=== PATIENT | male | born 1930 | race Caucasian/White ===

== ENCOUNTER → 2016-04-08 | Outpatient (CLI) | payer OTHER, MEDICARE ==
[~2016-04-08] MED LIST: ACET-1311 PO; ACT/30 PO; AMX500 PO; APIX1TAB3 PO; ASPI1TAB66 PO; ATOR80TA PO; CHOL100010 PO; DOCU100C31 PO; FAMO20TA11 PO; FURO-85 PO; GLIM1TAB PO; ISOS60TA2 PO; LEDI1TAB PO; METF1000 PO; METO25TA56 PO; NITR0.4S UT; NVLG; POTA-65 PO
[2016-04-08 13:18] LABS: ESTIMATED AVERAGE GLUCOSE 146 mg/dl; HA1C FLAG Normal (Normal)
[2016-04-08 13:55] LABS: RATIO 8.9 mcg/mg (0-30.0)
== END | disposition home or self-care (01) ==
LOC: C.LAB1850 11:35
PROVIDERS: ATTEND Nurse Practitioner Family
DX: E11.65 Type 2 diabetes mellitus with hyperglycemia (principal)

== ENCOUNTER → 2016-04-10 | Outpatient (CLI) | payer OTHER, MEDICARE ==
--- NOTE | 2016-04-10 12:10 | DIAGNOSTIC IMAGING REPORT ---
CT SCAN OF THE CHEST WITHOUT IV CONTRAST CLINICAL HISTORY: Pleural effusion. COMPARISON STUDY: Chest CT dated 01/09/2016 and 11/15/2015. TECHNIQUE: CT scan of the thorax was performed from the thoracic inlet to the upper abdomen. Images are reviewed in the axial, sagittal, and coronal planes. IV contrast was not administered for this examination as per the referring clinician. CT DOSE: 363.53 mGy.cm FINDINGS: Thyroid: Imaged portions of the thyroid gland are normal in size and attenuation. Thoracic aorta: There is atherosclerotic calcification of the thoracic aorta, which is normal in caliber and demonstrates standard 3-vessel arch anatomy. Heart: Midline sternotomy wires are noted. The heart is enlarged and without pericardial effusion. The coronary arteries and aortic valve leaflets are densely calcified. Lungs and pleural spaces: There is unchanged appearance of a small and loculated appearing pleural collection at the right lung base with associated pleural thickening. There is associated consolidative change at the right lung base with a curvilinear configuration. Additional foci of scarring are seen in the right upper lung. Foci of tree-in-bud nodularity are again seen in the left upper lobe in the right middle lobe. Scattered calcified granulomas are identified. A 4 mm low suspicion focus of pleural thickening is again seen in the left lower lobe lung major fissure on image #[id number]. The trace left pleural effusion seen previously has resolved. Mediastinum: There is no mediastinal lymphadenopathy. Margarita: Not well assessed without IV contrast. Axillae: There is no axillary lymphadenopathy. Upper abdomen: Cholecystectomy clips are noted. There is near complete fatty atrophy of the pancreas. Cortical atrophy is noted in the partially imaged kidneys. There are small nonobstructing right renal calculi. A hiatal hernia is observed. Calcified mesenteric lymph nodes are seen in the left upper quadrant.. Skeletal structures: The skeletal structures are osteopenic. No lytic or blastic bony lesions are seen. There is a mild compression deformity of L1. IMPRESSION: 1. Unchanged appearance of a small chronic and loculated appearing pleural collection at the right lung base dating back to the 11/15/2015 examination. 2. There is unchanged curvilinear airspace opacification identified at the right lung base. The appearance is most typical for round atelectasis. 3. Tree-in-bud airspace opacities in the right middle and left upper lobes are unchanged from previous. 4. Cardiomegaly. 5. Right-sided nephrolithiasis. 6. Additional changes as above. Electronically signed by: Wilfred Corley M.D. 04/10/2016 12:08 PM Dictated Date/Time: 04/10/2016 12:02 PM
== END | disposition home or self-care (01) ==
LOC: C.CTS 11:26
PROVIDERS: ATTEND Surgery
DX: J90 Pleural effusion, not elsewhere classified (principal); I51.7 Cardiomegaly; N20.0 Calculus of kidney

== ENCOUNTER → 2016-05-29 | Outpatient (CLI) | payer OTHER, MEDICARE ==
[2016-05-29 11:00] LABS: ALT/SGPT 26 U/L (12-78); BLOOD UREA NITROGEN 19 mg/dl (7-18); CARBON DIOXIDE 28 mmol/L (21-32); CHLORIDE 101 mmol/L (98-107); CHOLESTEROL 117 mg/dl (0-200); GLUCOSE 146 mg/dl (70-99); POTASSIUM 4.5 mmol/L (3.5-5.1); SODIUM 137 mmol/L (136-145)
[2016-05-29 11:11] LABS: ALB/GLOB RATIO 0.7 (0.9-2); ALKALINE PHOSPHATASE 88 U/L (45-117); AST/SGOT 26 U/L (15-37); CHOLESTEROL/HDL RATIO 2.6; HDL CHOLESTEROL 45 mg/dl; LDL CHOLESTEROL CALCULATED 60 mg/dl; TRIGLYCERIDES 61 mg/dl (0-150); VERY LOW DENSITY LIPOPROT CALC 12 mg/dl
[2016-05-29 11:17] LABS: ESTIMATED AVERAGE GLUCOSE 151 mg/dl; HA1C FLAG Normal (Normal)
[2016-05-29 13:46] LABS: RATIO 31.6 mcg/mg (0-30.0)
== END | disposition home or self-care (01) ==
LOC: C.LAB1850 09:23
PROVIDERS: ATTEND Nurse Practitioner Family
DX: E11.49 Type 2 diabetes mellitus with other diabetic neurological complication (principal); E78.5 Hyperlipidemia, unspecified

== ENCOUNTER → 2016-05-31 | Outpatient (CLI) | payer OTHER, MEDICARE ==
[2016-05-31 12:11] LABS: BASO % 1.2 %; BASO ABS # 0.09 K/uL (0-0.2); COMPLETE YES; EOS % 2.2 %; HEMATOCRIT 44.8 % (42-52); IG% 0.4 %; LYMPH % 14.2 %; LYMPH ABS # 1.09 K/uL (1.2-3.4); MEAN CELL VOLUME 84.7 fL (80-100); MEAN CORPUSCULAR HEMOGLOBIN 27.6 pg (25-34); MEAN CORPUSCULAR HGB CONC 32.6 g/dl (32-36); MEAN PLATELET VOLUME 9.8 fL (7.4-10.4); PLATELET COUNT 212 K/uL (130-400); RED BLOOD COUNT 5.29 M/uL (4.7-6.1); WHITE BLOOD COUNT 7.67 K/uL (4.8-10.8)
[2016-05-31 12:42] LABS: INR 1.1 (0.9-1.1); PROTHROMBIN TIME (PATIENT) 11.4 SECONDS (9.0-12.0)
[2016-06-04 23:33] LABS: ANTI-CENTROMERE AB <1.0 NEG AI (<1.0 NEG); ANTI-SS-A <1.0 NEG AI (<1.0 NEG); ANTI-SS-B <1.0 NEG AI (<1.0 NEG); DNA ds CRITHIDIA NEGATIVE (NEGATIVE); HEPATITIS C VIRAL RNA BY PCR 5370000 IU/ML (<15); HEPATITIS C VIRAL RNA(LOG) PCR 6.73 LOG IU/ML (<1.18); LIVER FIBR APOLIPOPROTEIN A-1 125 mg/dL (94-176); LIVER FIBROS ALPHA-2-MACROGLOB 384 mg/dL (106-279); LIVER FIBROSIS GGT 47 U/L (3-70); MICROSOMAL AB <1 IU/ML (<9); NECROINFLAMMATION ACT GRADE A0; NECROINFLAMMATION ACT SCORE 0.15; Sm Antibody <1.0 NEG AI (<1.0 NEG); URCREATININE 46.6 MG/DL (>/= 20)
--- NOTE | 2016-06-06 06:13 | CODING QUERY MEDICAL NECESSITY ---
SUPPORTING DIAGNOSIS NEEDED A supporting diagnosis is required for the test/procedure performed on this patient in order for us to be reimbursed by the patient's insurance. Please provide a supporting diagnosis for the following test/procedure listed below next to the test name along with your signature. *If there is no additional diagnosis for this patient that would support the following test/procedure please document that below next to the test/procedure. Test(s)/Procedure(s) that require a supporting diagnosis: * URINE DRUG SCREEN DIAGNOSIS: * DOS: 05/31/16 Provider Signature: Date: Thank you Joanne Jones Health Information Management Once completed, please kindly fax back to [phone] For questions please call [phone]
== END | disposition home or self-care (01) ==
LOC: C.LAB1850 10:44
PROVIDERS: ATTEND Internal Medicine Infectious Disease
DX: B18.2 Chronic viral hepatitis C (principal)

== ENCOUNTER → 2016-06-26 | Outpatient (CLI) | payer OTHER, MEDICARE ==
--- NOTE | 2016-06-26 14:29 | DIAGNOSTIC IMAGING REPORT ---
CT SCAN OF THE CHEST WITHOUT IV CONTRAST CLINICAL HISTORY: Dyspnea on exertion. Pleural effusion. COMPARISON STUDY: Chest CT dated 04/10/2016 and 11/15/2015. TECHNIQUE: CT scan of the thorax was performed from the thoracic inlet to the upper abdomen. Images are reviewed in the axial, sagittal, and coronal planes. IV contrast was not administered for this examination as per the referring clinician. CT DOSE: 475.45 mGycm FINDINGS: Thyroid: Imaged portions of the thyroid gland are normal in size and attenuation. Thoracic aorta: There is atherosclerotic calcification of the thoracic aorta, which is normal in caliber and demonstrates standard 3-vessel arch anatomy. Heart: Midline sternotomy wires are noted. The heart is enlarged and without pericardial effusion. The coronary arteries and aortic valve leaflets are densely calcified. Lungs and pleural spaces: There is unchanged appearance of a small and loculated appearing pleural collection at the right lung base with associated pleural thickening. There is associated consolidative change at the right lung base with a curvilinear configuration suggesting round atelectasis. Additional foci of scarring are seen in the right midlung. Numerous foci of tree-in-bud nodularity are again seen in the left upper lobe and in the right middle lobe. Scattered calcified granulomas are identified. A 4 mm low suspicion focus of pleural thickening is again seen in the left lower lobe along the major fissure on image #[id number]. Mediastinum: There are scattered subcentimeter mediastinal lymph nodes. These are not pathologically enlarged by size criteria. Margarita: Not well assessed without IV contrast. Axillae: There is no axillary lymphadenopathy. Upper abdomen: Cholecystectomy clips are noted. There is near complete fatty atrophy of the pancreas. Cortical atrophy is noted in the partially imaged kidneys. There are small nonobstructing right renal calculi. A hiatal hernia is observed. Calcified mesenteric lymph nodes are again seen in the left upper quadrant.. Skeletal structures: The skeletal structures are osteopenic. No lytic or blastic bony lesions are seen. There is a mild chronic compression deformity of L1. IMPRESSION: 1. No significant change from 04/10/2016. 2. Again seen is a small chronic and loculated appearing pleural collection at the right lung base. This has not significantly changed dating back to the 11/15/2015 examination. 3. Curvilinear airspace opacification is identified at the right lung base. The appearance is most typical for round atelectasis. 4. Tree-in-bud airspace opacities in the right middle and left upper lobes are unchanged from prior studies and suggest a chronic infectious/inflammatory pneumonitis. 5. Cardiomegaly. 6. Right-sided nephrolithiasis. 7. Additional findings as above. Electronically signed by: Wilfred Corley M.D. 06/26/2016 2:28 PM Dictated Date/Time: 06/26/2016 2:22 PM
== END | disposition home or self-care (01) ==
LOC: C.CTS 14:05
PROVIDERS: ATTEND Surgery
DX: J90 Pleural effusion, not elsewhere classified (principal); R06.02 Shortness of breath; R91.8 Other nonspecific abnormal finding of lung field; I51.7 Cardiomegaly; M85.80 Other specified disorders of bone density and structure, unspecified site; N20.0 Calculus of kidney; K44.9 Diaphragmatic hernia without obstruction or gangrene

== ENCOUNTER → 2016-07-08 | Outpatient (CLI) | payer OTHER, MEDICARE ==
[2016-07-08 14:29] LABS: BLOOD UREA NITROGEN 31 mg/dl (7-18); BUN/CREATININE RATIO 25.5 (10-20); CALCIUM 8.9 mg/dl (8.5-10.1); CARBON DIOXIDE 28 mmol/L (21-32); CHLORIDE 101 mmol/L (98-107); GLUCOSE 176 mg/dl (70-99); POTASSIUM 4.4 mmol/L (3.5-5.1); SODIUM 135 mmol/L (136-145)
== END | disposition home or self-care (01) ==
LOC: C.LAB1850 12:31
PROVIDERS: ATTEND Internal Medicine Cardiovascular Disease
DX: I10 Essential (primary) hypertension (principal); R60.9 Edema, unspecified; R06.02 Shortness of breath

== ENCOUNTER → 2016-08-07 | Outpatient (CLI) | payer OTHER, MEDICARE ==
[2016-08-07 11:51] LABS: MEAN CELL VOLUME 85.1 fL (80-100); MEAN CORPUSCULAR HEMOGLOBIN 27.6 pg (25-34); MEAN CORPUSCULAR HGB CONC 32.4 g/dl (32-36); MEAN PLATELET VOLUME 9.7 fL (7.4-10.4); PLATELET COUNT 212 K/uL (130-400); RED BLOOD COUNT 4.82 M/uL (4.7-6.1)
--- NOTE | 2016-08-07 11:54 | DIAGNOSTIC IMAGING REPORT ---
ULTRASOUND OF THE CAROTID ARTERIES CLINICAL HISTORY: Peripheral vascular disease COMPARISON STUDY: None. TECHNIQUE: Real-time, grayscale, and color Doppler sonography of the carotid arteries was performed. Imaging reviewed in the transverse and longitudinal planes. NASCET criteria was utilized for stenosis calcification. FINDINGS: There is minimal atherosclerotic plaque present . The peak systolic velocity within the right internal carotid artery is 55 cm/sec. The systolic velocity ratio of right internal to common carotid artery is 0.7. The peak systolic velocity within the left internal carotid artery is 46 cm/sec. The systolic velocity ratio left internal to common carotid artery is 0.7. Antegrade flow is seen in the vertebral arteries. The external carotid arteries are patent. Blood pressure in the right arm measured 85 mm/Hg. Blood pressure in the left arm measured 90 mm/Hg. IMPRESSION: No evidence of hemodynamically significant carotid stenosis. Electronically signed by: John Fraser M.D. 08/07/2016 11:52 AM Dictated Date/Time: 08/07/2016 11:51 AM
[2016-08-07 12:01] LABS: INR 1.1 (0.9-1.1)
[2016-08-07 12:40] LABS: BLOOD UREA NITROGEN 30 mg/dl (7-18); BUN/CREATININE RATIO 25.2 (10-20); CARBON DIOXIDE 29 mmol/L (21-32); CHLORIDE 101 mmol/L (98-107); GLUCOSE 84 mg/dl (70-99); POTASSIUM 4.3 mmol/L (3.5-5.1); SODIUM 136 mmol/L (136-145)
[2016-08-07 14:31] LABS: RATIO 8.4 mcg/mg (0-30.0)
== END | disposition home or self-care (01) ==
LOC: C.ULTR 10:37
PROVIDERS: ATTEND Family Medicine
DX: Z01.818 Encounter for other preprocedural examination (principal); I73.9 Peripheral vascular disease, unspecified; E11.29 Type 2 diabetes mellitus with other diabetic kidney complication; I65.23 Occlusion and stenosis of bilateral carotid arteries

== ENCOUNTER → 2016-08-09 | Day surgery (SDC) | payer OTHER, MEDICARE ==
[~2016-08-09] VITALS: Ht 170.2 cm; Wt 76.0 kg
[~2016-08-09] MED LIST changes: +ACETAMINOPHEN 325 MG TAB PO PRN; +AMOXICILLIN 500 MG CAP PO SCH; +ATROPINE SULFATE 0.1 MG/ML 5ML SYR IV PRN; +CEFTRIAXONE SOD INJ 1 GM in DEXTROSE 5% ADD-VANTAGE 50ML 50 ML IV ONE; +FENTANYL CITRATE INJ 50 MCG/1 ML 2 ML VIAL ONE; +LIDOCAINE HCL 1% 20 ML VIAL ONE; +MIDAZOLAM HCL 1 MG/ML 2ML VIAL ONE; +SODIUM CHLORIDE 0.9% 1000ML 1,000 ML IV SCH; +SODIUM CHLORIDE 0.9% 1000ML 250 ML IV PRN
[2016-08-09 06:59] VITALS: BP 110/58; PULSE 83; TEMP 36.5; O2SAT 96; Ht 170.2 cm; Wt 76.0 kg
--- NOTE | 2016-08-09 08:17 | Procedure Note ---
Pre-Mod Sedation Assessment General Date of Moderate Sedation: August 09, 2016. Vital Signs: Vital Signs Past 12 Hours Date Time Temp Pulse Resp B/P Pulse Ox O2 Delivery O2 Flow Rate FiO2 08/09/16 06:59 36.5 83 18 110/58 96 Room Air Review Cardiovascular: + systolic murmur, + pertinent finding (pretibial edema) Abdomen: non tender, soft Lungs: lungs clear Pre-Sedation Airway Assessment Oral Cavity: Dentures, WNL Able to Visualize Vocal Cords: No Short Thick Neck: No Hx of Sleep Apnea: No Smoking Status: Former Smoker ASA Classification: Class III Procedure Planning Contraindications-for Mod Sed: None Yes Notes The planned sedation has been discussed with the patient and consent obtained. I have identified the patient, determined the appropriateness of sedation and have assessed the patient immediately prior to the procedure. All medicine(s) and interventions are by my order.
--- NOTE | 2016-08-09 08:21 | History & Physical Bridge Note ---
H&P Re-Evaluation Bridge Note: I have examined the patient, reviewed the History & Physical and in the interval since the performance of the History & Physical I have noted the following changes of clinical significance: Procedure ,risks, benefits, alternatives of cardiac catheterization discussed with patient. No changes noted
[2016-08-09 09:29] LABS: ISTAT ARTERIAL BLOOD GAS HCO3 25 meq/L (19-24); ISTAT ARTERIAL BLOOD GAS HCO3 26 meq/L (19-24); ISTAT ARTERIAL BLOOD GAS PCO2 43 mmHg (35-46); ISTAT ARTERIAL BLOOD GAS PCO2 45 mmHg (35-46); ISTAT ARTERIAL BLOOD GAS PO2 < 32 mmHg (80-95); ISTAT ARTERIAL BLOOD GAS pH 7.36 (7.35-7.45); ISTAT ARTERIAL BLOOD GAS pH 7.37 (7.35-7.45); ISTAT CARBON DIOXIDE 26 mEq/l (24-31); ISTAT CARBON DIOXIDE 27 mEq/l (24-31)
[2016-08-09 09:29] LABS: ISTAT ARTERIAL BLOOD GAS HCO3 24 meq/L (19-24); ISTAT ARTERIAL BLOOD GAS PCO2 38 mmHg (35-46); ISTAT ARTERIAL BLOOD GAS PO2 65 mmHg (80-95); ISTAT ARTERIAL BLOOD GAS pH 7.41 (7.35-7.45); ISTAT CARBON DIOXIDE 25 mEq/l (24-31)
[2016-08-09 09:29] LABS: ISTAT ARTERIAL BLOOD GAS HCO3 25 meq/L (19-24); ISTAT ARTERIAL BLOOD GAS PCO2 41 mmHg (35-46); ISTAT ARTERIAL BLOOD GAS PO2 < 32 mmHg (80-95); ISTAT ARTERIAL BLOOD GAS pH 7.38 (7.35-7.45); ISTAT CARBON DIOXIDE 26 mEq/l (24-31)
--- NOTE | 2016-08-09 12:50 | Procedure Note ---
Post-Mod Sedation Assessment General Date of Moderate Sedation August 09, 2016. Vital Signs: Vital Signs Past 12 Hours Date Time Temp Pulse Resp B/P Pulse Ox O2 Delivery O2 Flow Rate FiO2 08/09/16 12:30 74 18 110/60 96 Room Air 08/09/16 12:00 70 18 100/62 95 Room Air 08/09/16 11:45 71 18 89/55 95 Room Air 08/09/16 11:30 70 18 95/52 95 Room Air 08/09/16 11:15 70 18 89/54 95 Room Air 08/09/16 11:00 70 18 94/57 95 Room Air 08/09/16 10:45 70 20 107/59 96 Room Air 08/09/16 10:40 68 20 104/65 96 Room Air 08/09/16 10:35 70 20 93/60 95 Room Air 08/09/16 10:30 71 24 101/58 96 Room Air 08/09/16 10:25 70 20 102/57 95 Room Air 08/09/16 10:20 70 20 112/61 96 Room Air 08/09/16 10:15 70 20 101/62 98 Room Air 08/09/16 10:10 69 22 110/69 98 Room Air 08/09/16 10:05 68 23 109/73 100 Mask 3 08/09/16 10:00 68 22 112/74 98 Mask 3 08/09/16 06:59 36.5 83 18 110/58 96 Room Air Review - Discharge Criteria Vital Signs Stable: Yes Alert/Oriented/Conversant: Yes Returned to Baseline Mental St: Yes Nausea Absent/Minimal: Yes Pain/Discomfort/Absent/Minimal: Yes Normal/Baseline Respirations: Yes Active Bleeding?: No Pt Received D/C Instructions: Yes Prescriptions Given: Transmitted Specific Proced. D/C Criteria Distal Pulses Present (Cardiac: Yes Groin site assessed-Card Cath: Yes Voided Prior To Discharge: Yes Discharged Patients Adult Escort/Transportation: Yes
--- NOTE | 2016-08-09 13:21 | Discharge Instructions ---
Discharge Instructions Procedure Procedure Date: August 09, 2016. Reason for Visit: CAD, severe aortic stenosis. Cardiac cath pre TAVR Discharge Discharge Date: August 09, 2016. Discharge Diagnosis: Severe aortic stenosis. Coronary artery disease. Elevated intracardiac pressures. Last Recorded Wt (Kilograms): 76 Anesthesia Post Anesthesia Instructions: If you have had General Anesthesia or IV Sedation: * Do not drive today. * Resume driving when surgeon permits. * Do not make important decisions or sign legal documents today. * Call surgeon for: 1. Temperature elevations greater than 101 degrees F. 2. Uncontrollable pain. 3. Excessive bleeding. 4. Persistent nausea and vomiting. 5. Medication intolerance (nausea, vomiting or rash). * For nausea and vomiting use only clear liquids such as: tea, soda, bouillon until nausea subsides, then gradually increase diet as tolerated. * If you have any concerns or questions, call your surgeon's office. If physician is unavailable and it is an emergency, call 911 or go to the nearest emergency room. Instructions Activity Recommendations: lifting limitation (no lifting over 10 pounds for 48hr.), driving or machine use limit (Not till 08/10/16.), shower/bathe limit ( Not till 08/10/2016) Recommended Home Diet: low sodium, low cholesterol Allergies: Coded Allergies: Lisinopril (Unverified Adverse Reaction, Mild, unsteady gait, 10/03/12) Follow Up Additional Instructions: Call Dr. Rucker's office at [phone] for any questions or problems. Follow-up with: Dr. Rucker as scheduled. Dr. Chatman as scheduled. [facility] Recommendations: Call your doctor if: * Temperature above 101 degrees * Pain not relieved by pain medicine ordered * There is increased drainage or redness from any incision * You have any unanswered questions or concerns. Your Doctors Instructions noted above were prepared by provider Blas Rucker. Patient Signature Section: Patient Instructions Signature Page Marty Marquez Patient (or Guardian) Signature/Date: I have read and understand the instructions given to me by my caregivers. Caregiver/RN/Doctor Signature/Date: The above-named patient and/or guardian has received patient instructions on this date. + Original Patient Signature Page (only) stays with chart. Please make copy for patient.
--- NOTE | 2016-08-09 13:38 | Cardiac Catheterization ---
Procedure Note Procedure Date August 09, 2016. Pre-Procedure Diagnosis Angina, CAD, Valvular Disease, Cardiomyopathy AUC Score 7 Post-Procedure Diagnosis Severe CAD, Elevated Intracardiac Pressures Procedure(s) Performed Coronary Angiography, Right Heart Cath, Aortography, Femoral Artery Angiography Last Sorter Dr. Rucker Rn Licensed Practical(s) KIMBERLY Groves Estimated Blood Loss 40 ml Medication(s) Fentanyl, Heparin, Versed, Lidocaine 1% Summary of Findings Clinical indications: The patient has a longstanding history of coronary artery disease. He has undergone since 3 separate coronary artery bypass graft procedures in the past ( 1979,1987, 1999) . His most recent bypass was left internal mammary artery graft to LAD performed in December 1999. Failed catheter based intervention January 2000 [facility]. Medical therapy thereafter was recommended. External counterpulsation therapy 2000 in 2001. Longstanding history of aortic stenosis. Aortic valve area in 1999 10 was 1.1 cm. He also has a cardiomyopathy with prior LV ejection fraction 30%. He has previously declined referral for placement of an ICD. The patient has declined aortic valve replacement surgery or TAVR until recently. Recently he has developed worsening symptoms of heart failure manifested by increasing dyspnea on exertion. Now agreeable to undergoing TAVR. He has been evaluated at the [facility] for TAVR. This cardiac catheterization was indicated as workup prior to undergoing TAVR. Echocardiogram April 08, 2016 with moderate LV systolic dysfunction, moderate concentric LVH, severe calcific aortic stenosis, calculated aortic valve area 0.6 sq cm. Global hypokinesis of left ventricle most prominent in the anteroseptal and inferior segments. LV ejection fraction 35-40%. [id number] mitral regurgitation, mild tricuspid regurgitation, trace aortic regurgitation, trace pulmonic regurgitation. Moderate pulmonary hypertension. Elevated central venous pressure. Catheterization protocol: 4 Montserratian sheath right femoral artery. 7 Montserratian sheath right femoral vein. It was first attempted to insert a 5 Montserratian sheath in the right femoral artery. There was extensive scar tissue over the right femoral artery in the subcutaneous tissues. The 5 Montserratian sheath would not advance over the guidewire. The 4 Montserratian sheath was then inserted with difficulty. The 7 Montserratian sheath was inserted in the right femoral vein. Right heart catheterization was then performed. Coronary artery and bypass graft angiography were then performed. Aortography was then performed. The sheaths were then removed and hemostasis obtained with the application of manual pressure. Catheters: 7 Montserratian [place]-Julianne thermodilution catheter for right heart catheterization. 4 Montserratian JL4, JR4, internal mammary, and pigtail catheters for coronary angiography, bypass graft angiography, and aortography. Findings: The pressures in mm Hg were: RA 12/13/11; pulmonary artery 71/30/47 ; RV 74/14; pulmonary wedge 27/32/24; rest aorta 104/60/77; final aorta 104/59/ 77. Cardiac output determined by thermodilution method was 3.4 liters/ minute. Cardiac index 1.8 liters/minute per meter squared. The aortic saturation was 93%. Pulmonary artery 46%. the pulmonary vascular resistance determined by the thermodilution cardiac output was 6.7 Elliott units. The systemic vascular resistance was 19.2 Elliott units. fluoroscopy revealed coronary and aortic valvular calcifications. It revealed presence of coronary stents, surgical clips, and sternal wire sutures. There were no saphenous vein graft markers present. The coronary circulation was right dominant. The left main coronary artery was a large caliber vessel giving rise to large caliber left anterior descending and small caliber left circumflex coronary arteries. The distal left main had a 10% stenosis. Proximal LAD had a 30% stenosis before the 1st septal perforating branch and the 1st diagonal branch. The 1st diagonal had a 90% ostial stenosis. The 1st diagonal was a small caliber vessel. The septal perforating artery was a long small caliber prominent vessel. Left to right collateral flow was present from this septal to very small caliber right posterior descending artery and posterolateral arteries. The 2nd diagonal had a 50% ostial stenosis. The LAD was totally occluded after the origin of the 2nd diagonal. The left circumflex was diffusely disease. Very proximal left circumflex gave rise to two very small caliber diagonal type branches. The proximal circumflex was then totally occluded. Bridging movi-dv-orln collaterals were then present to the mid and distal circumflex. This segment of the left circumflex was visualized as a small caliber vessel. The mid circumflex gave rise to marginal which had a total ostial occlusion. The distal circumflex gave rise to a very small caliber marginal branch. Left to right collateral flow was present from the left circumflex to the right posterolateral artery. with faint pfxk-lf-gzkh collateral flow was present from the LAD diagonal to a left circumflex marginal. The right coronary artery was a small caliber vessel with a total proximal occlusion. Bridging right to right collateral flow from the proximal to mid RCA. The mid RCA gave rise to 2 very small caliber right ventricular branches. The RCA was then totally occluded in its distal segment. The left internal mammary artery was a very large caliber vessel. It was widely patent. It gave rise to a patent end-to-side anastomosis to the mid LAD. Distal to the graft insertion the mid LAD had minor luminal irregularities. The distal LAD then had a 30% stenosis. Proximal to the graft anastomosis the mid LAD had a 50% stenosis. There was retrograde flow to a long small caliber diagonal artery. Zwmy-lf-axbx collateral flow was present from the distal LAD diagonal to the left circumflex marginal. Pjgk-ik-owrma collateral flow was present from the distal LAD to the right posterior descending artery as well as a right ventricular branch. No saphenous vein grafts could be found with the diagnostic JR4 catheter. Ascending Aortography revealed no evidence of any functioning bypass grafts. There was 2+ aortic regurgitation noted. Right femoral angiography revealed the sheath to be present in the right common femoral artery. The right common femoral artery had a 20% stenosis. The right external iliac artery had minor luminal irregularities. The right proximal SFA and profunda arteries had no obstructive disease. Hemostasis: Manual pressure. Because of the difficulty in inserting the right femoral arterial venous sheath it was felt that deployment of a closure device would be difficult. Complications: None. Plan: The patient will continue with evaluation for undergoing a TAVR procedure. He has no coronary lesions that are good candidates for percutaneous intervention. Hemodynamics Rest Ao: 104/60/77 mm Hg Final Ao: 104/59/77 mm Hg RA: 13/12/11/ mm Hg RV: 74/14 mm Hg PA: 71/30/47 mm Hg PW: 27/32/24 mm Hg Recommendations valve replacement Specimens None Radiation Exposure (mGy) 3108 Contrast (mls) 205 ml Visipaque Fluids (cc crystalloids) 160 Drains none Anesthesia IV Versed,fentanyl. Lidocaine 1% local Procedural Complication(s) None Disposition [employer]/Recovery ACC Data Cardiac Status Clinical evaluation leading to the procedure CAD Presntation: Stable angina Anginal Classification: CCS III Heart Failure: NYHA Class: CCS III Cardiogenic Shock w/in 24Hrs: No Cardiac Arrest w/in 24Hrs: No Imaging studies past 6 months: Yes Stress studies past 6 months: No Standard Exercise Stress Test: No Stress Echocardiogram: No Stress Testing w/SPECT MPI: No Cardiac CTA: No Coronary Anatomy Left Main (% Stenosis): Distal (10) LAD (% Stenosis): Proximal (30), Mid (100) D1 (% Stenosis): Proximal (90) D2 (% Stenosis): Ostial (50) Circumflex (% Stenosis): Proximal (100) OM1 (% Stenosis): Ostial (100) RCA (% Stenosis): Proximal (100), Distal (100) Grafts - LAD (%): Normal Grafts - Circumflex (%): Ostial (100) Grafts - RCA (%): Ostial (100) Left Ventricular Angiography EF (%): na Diagnostic Physician's Name: Blas Rucker M.D. Closure Device Percutaneous Entry Location: Femoral Closure Device: none - manual hold Recommendations: valve replacement
[2016-08-09 14:00] VITALS: BP 105/66; PULSE 76; O2SAT 96
== END | disposition home or self-care (01) ==
LOC: C.CATH 06:47
PROVIDERS: ATTEND Internal Medicine Cardiovascular Disease
DX: I25.119 Atherosclerotic heart disease of native coronary artery with unspecified angina pectoris (principal); I38 Endocarditis, valve unspecified; I42.9 Cardiomyopathy, unspecified; I35.0 Nonrheumatic aortic (valve) stenosis; I48.0 Paroxysmal atrial fibrillation; I10 Essential (primary) hypertension; R09.02 Hypoxemia; I73.9 Peripheral vascular disease, unspecified; E78.5 Hyperlipidemia, unspecified; E11.9 Type 2 diabetes mellitus without complications; Z86.19 Personal history of other infectious and parasitic diseases; Z79.82 Long term (current) use of aspirin; Z79.4 Long term (current) use of insulin; Z87.891 Personal history of nicotine dependence; Z83.3 Family history of diabetes mellitus; Z82.49 Family history of ischemic heart disease and other diseases of the circulatory system

== ENCOUNTER → 2016-08-12 | Outpatient (CLI) | payer OTHER, MEDICARE ==
[~2016-08-12] MED LIST changes: -ACETAMINOPHEN 325 MG TAB PO PRN; -ACT/30 PO; -AMOXICILLIN 500 MG CAP PO SCH; -ATOR80TA PO; -ATROPINE SULFATE 0.1 MG/ML 5ML SYR IV PRN; -CEFTRIAXONE SOD INJ 1 GM in DEXTROSE 5% ADD-VANTAGE 50ML 50 ML IV ONE; -FENTANYL CITRATE INJ 50 MCG/1 ML 2 ML VIAL ONE; -GLIM1TAB PO; -LIDOCAINE HCL 1% 20 ML VIAL ONE; -METF1000 PO; -MIDAZOLAM HCL 1 MG/ML 2ML VIAL ONE; -SODIUM CHLORIDE 0.9% 1000ML 1,000 ML IV SCH; -SODIUM CHLORIDE 0.9% 1000ML 250 ML IV PRN
[2016-08-12 13:45] LABS: BLOOD UREA NITROGEN 23 mg/dl (7-18); CARBON DIOXIDE 32 mmol/L (21-32); CHLORIDE 101 mmol/L (98-107); GLUCOSE 154 mg/dl (70-99); POTASSIUM 4.4 mmol/L (3.5-5.1); SODIUM 137 mmol/L (136-145)
== END | disposition home or self-care (01) ==
LOC: C.LAB 11:19
PROVIDERS: ATTEND Internal Medicine Cardiovascular Disease
DX: N28.9 Disorder of kidney and ureter, unspecified (principal)

== ENCOUNTER → 2016-11-26 | Day surgery (SDC) | payer OTHER, MEDICARE ==
[~2016-11-26] VITALS: Ht 172.7 cm; Wt 76.0 kg
[~2016-11-26] MED LIST changes: +LIDOCAINE HCL 2% 2 ML VIAL (20MG/ML) ONE; +PROPOFOL IV EMULSION 10 MG/ML 20 ML VIAL IV ONE
[2016-11-26 07:03] VITALS: BP 131/70; PULSE 63; TEMP 36.5; O2SAT 95; Ht 172.7 cm; Wt 76.0 kg
[2016-11-26 07:35] VITALS: BP 141/100; PULSE 68; O2SAT 95
[2016-11-26 07:38] LABS: HEMATOCRIT 38.9 % (42-52)
[2016-11-26 07:40] VITALS: BP 107/56; PULSE 48; O2SAT 95
[2016-11-26 07:45] VITALS: BP 99/56; PULSE 52; O2SAT 95
[2016-11-26 07:54] LABS: BUN/CREATININE RATIO 23.7 (10-20); CALCIUM 9.1 mg/dl (8.5-10.1); CREATININE 1.1 mg/dl (0.60-1.40); MAGNESIUM 1.8 mg/dl (1.8-2.4); POTASSIUM 4.2 mmol/L (3.5-5.1)
--- NOTE | 2016-11-26 07:55 | Anesthesiology Progress Note ---
Anesthesia Post Op Note Date & Time Nov 26, 2016 at 07:55 Vital Signs Pain Intensity: 0 Vital Signs Past 12 Hours Date Time Temp Pulse Resp B/P (MAP) Pulse Ox O2 Delivery O2 Flow Rate FiO2 11/26/16 07:45 52 18 99/56 95 Room Air 11/26/16 07:40 48 18 107/56 95 Nasal Cannula 4 11/26/16 07:35 68 20 141/100 95 Nasal Cannula 4 11/26/16 07:03 36.5 63 18 131/70 95 Room Air Notes Mental Status: alert / awake / arousable, participated in evaluation Pt Amnestic to Procedure: Yes Nausea / Vomiting: adequately controlled Pain: adequately controlled Airway Patency, RR, SpO2: stable & adequate BP & HR: stable & adequate Hydration State: stable & adequate Anesthetic Complications: no major complications apparent
[2016-11-26 07:57] LABS: ISTAT CREATININE 1.1 mg/dl (0.6-1.3); ISTAT HEMOGLOBIN 13.6 g/dl (14.0-18.0); ISTAT IONIZED CALCIUM 1.18 mmol/l (1.12-1.32)
--- NOTE | 2016-11-26 07:57 | History & Physical Bridge Note ---
H&P Re-Evaluation Bridge Note: I have examined the patient, reviewed the History & Physical and in the interval since the performance of the History & Physical I have noted the following changes of clinical significance: No changes noted
--- NOTE | 2016-11-26 08:06 | Discharge Instructions ---
Discharge Instructions Procedure Procedure Date: Nov 26, 2016. Reason for Visit: A Flutter * To Do*. Discharge Discharge Date: Nov 26, 2016. Discharge Diagnosis: Successful electrical cardioversion of atrial flutter to sinus rhythm Last Recorded Wt (Kilograms): 76 Anesthesia Post Anesthesia Instructions: If you have had General Anesthesia or IV Sedation: * Do not drive today. * Resume driving when surgeon permits. * Do not make important decisions or sign legal documents today. * Call surgeon for: 1. Temperature elevations greater than 101 degrees F. 2. Uncontrollable pain. 3. Excessive bleeding. 4. Persistent nausea and vomiting. 5. Medication intolerance (nausea, vomiting or rash). * For nausea and vomiting use only clear liquids such as: tea, soda, bouillon until nausea subsides, then gradually increase diet as tolerated. * If you have any concerns or questions, call your surgeon's office. If physician is unavailable and it is an emergency, call 911 or go to the nearest emergency room. Instructions Activity Recommendations: resume regular activity Recommended Home Diet: low sodium, low cholesterol, diabetes diet Allergies: Coded Allergies: Lisinopril (Unverified Adverse Reaction, Mild, unsteady gait, 10/03/12) Follow Up Additional Instructions: Call Dr. Rucker at [phone] for any problems or questions [facility] Recommendations: Call your doctor if: * Temperature above 101 degrees * Pain not relieved by pain medicine ordered * There is increased drainage or redness from any incision * You have any unanswered questions or concerns. Your Doctors Instructions noted above were prepared by provider Blas Rucker. Patient Signature Section: Patient Instructions Signature Page Marty Marquez Patient (or Guardian) Signature/Date: I have read and understand the instructions given to me by my caregivers. Caregiver/RN/Doctor Signature/Date: The above-named patient and/or guardian has received patient instructions on this date. + Original Patient Signature Page (only) stays with chart. Please make copy for patient.
--- NOTE | 2016-11-26 08:16 | Anesthesiology Progress Note ---
Anesthesia Post Op Note Date & Time Nov 26, 2016 at 08:16 Vital Signs Pain Intensity: 0 Vital Signs Past 12 Hours Date Time Temp Pulse Resp B/P (MAP) Pulse Ox O2 Delivery O2 Flow Rate FiO2 11/26/16 08:05 51 16 108/58 (75) 99 Room Air 11/26/16 07:55 51 16 104/58 (73) 99 Room Air 11/26/16 07:45 52 18 99/56 95 Room Air 11/26/16 07:40 48 18 107/56 95 Nasal Cannula 4 11/26/16 07:35 68 20 141/100 95 Nasal Cannula 4 11/26/16 07:03 36.5 63 18 131/70 95 Room Air Notes Mental Status: alert / awake / arousable, participated in evaluation Pt Amnestic to Procedure: Yes Nausea / Vomiting: adequately controlled Pain: adequately controlled Airway Patency, RR, SpO2: stable & adequate BP & HR: stable & adequate Hydration State: stable & adequate Anesthetic Complications: no major complications apparent
[2016-11-26 08:30] VITALS: BP 106/60; PULSE 48; O2SAT 99
--- NOTE | 2016-11-27 08:54 | CARDIOVERSION ---
DATE OF OPERATION: 11/26/2016 ELECTIVE ELECTRICAL CARDIOVERSION CLINICAL INDICATIONS: Persistent atrial flutter post TAVR. PROTOCOL: The patient had transcutaneous electrode pads placed anteriorly and posteriorly on his thorax. His rhythm was documented to be atrial flutter on the monitor. He then received deep sedation administered by the anesthesiologist. This was accomplished with propofol. He then received 1 shock of 150 joules of synchronized biphasic energy. His rhythm converted to sinus bradycardia with first degree atrioventricular block. The rate was 53 beats per minute. MO interval 296 milliseconds. The patient awoke from his anesthesia with no cardiac or neurologic complaints. He was hemodynamically stable. Post conversion electrocardiogram was sinus bradycardia, first degree atrioventricular block, inferior IN, T-wave inversions 1 and AVL. CONCLUSIONS: Successful elective electrical cardioversion of atrial flutter. Conversion to sinus rhythm. PLAN: The patient will remain on anticoagulation therapy with Eliquis. He will remain on low dose metoprolol tartrate 25 mg b.i.d. He will have outpatient cardiology followup in the [facility]. I attest to the content of the Intraoperative Record and any orders documented therein. Any exception s are noted below.
== END | disposition home or self-care (01) ==
LOC: C.CATH 06:50
PROVIDERS: ATTEND Physician Assistant Medical
DX: I48.0 Paroxysmal atrial fibrillation (principal); I35.0 Nonrheumatic aortic (valve) stenosis; I48.92 Unspecified atrial flutter; B18.2 Chronic viral hepatitis C; I25.10 Atherosclerotic heart disease of native coronary artery without angina pectoris; I10 Essential (primary) hypertension; E78.5 Hyperlipidemia, unspecified; I25.5 Ischemic cardiomyopathy; E11.42 Type 2 diabetes mellitus with diabetic polyneuropathy; E11.21 Type 2 diabetes mellitus with diabetic nephropathy; E11.51 Type 2 diabetes mellitus with diabetic peripheral angiopathy without gangrene; E55.9 Vitamin D deficiency, unspecified; Z95.1 Presence of aortocoronary bypass graft; Z95.2 Presence of prosthetic heart valve; Z87.891 Personal history of nicotine dependence